=== PATIENT | male | born 1970 | race African-American/Black ===

== ENCOUNTER 2019-10-26 20:08 | Emergency (ER) | payer BC, OTHER ==
[~2019-10-26] VITALS: Ht 175.3 cm; Wt 88.5 kg
[2019-10-26] MEDS ORDERED: HYDRALAZINE 2525 MG PO (20:19)
[2019-10-26 21:46] LABS: ABSOLUTE NEUTROPHILS 3.4 thou/uL (1.4-8.2); BASOPHILS 0.7 % (0.0-2.0); EOSINOPHILS 1.6 % (0.0-3.0); HEMATOCRIT 47.6 % (42.0-52.0); HEMOGLOBIN 16.2 gm/dL (14.0-18.0); LYMPHOCYTES 34.1 % (24.0-44.0); MCH 30.6 pg (26.0-34.0); MCV 89.9 fL (80.0-100.0); MONOCYTES 8.1 % (1.0-8.0); PLATELET COUNT 205 thou/uL (150-400); POLYS 55.5 % (36.0-66.0); RDW 14.7 % (10.5-14.5); WBC 6.1 thou/uL (4.0-11.0)
[2019-10-26 21:50] LABS: CALCIUM 9.5 mg/dL (8.5-10.1); CREATININE 1.1 mg/dL (0.7-1.3); POTASSIUM 3.6 mmol/L (3.5-5.1)
[2019-10-26 21:56] LABS: ALBUMIN 3.9 g/dL (3.4-5.0); TOTAL BILIRUBIN 0.7 mg/dL (<0.1-1.0); TOTAL PROTEIN 7.4 g/dL (6.4-8.2)
[2019-10-26 22:37] VITALS: BP 189/123
== END 2019-10-26 23:01 | disposition home or self-care (01) ==
LOC: ER 20:08
PROVIDERS: Nurse Practitioner
DX: Z79.899 Other long term (current) drug therapy (principal); F17.210 Nicotine dependence, cigarettes, uncomplicated

== ENCOUNTER 2020-01-16 12:26 | Emergency (ER) | payer BC, OTHER ==
[~2020-01-16] VITALS: Ht 175.3 cm; Wt 90.7 kg
[~2020-01-16 12:26] MED LIST: HYDRALAZINE 2525 MG PO
[2020-01-16] MEDS ORDERED: HYDROCHLOROTHIA25 M2 PO (12:40)
[2020-01-16] MEDS ORDERED: SERTRALINE HCL25 MG PO (12:41)
[2020-01-16 13:24] LABS: ABSOLUTE NEUTROPHILS 4.9 thou/uL (1.4-8.2); BASOPHILS 0.8 % (0.0-2.0); EOSINOPHILS 0.1 % (0.0-3.0); HEMATOCRIT 43.3 % (42.0-52.0); HEMOGLOBIN 14.6 gm/dL (14.0-18.0); LYMPHOCYTES 22.8 % (24.0-44.0); MCH 30.4 pg (26.0-34.0); MCHC 33.7 g/dL (28.0-37.0); MCV 90.3 fL (80.0-100.0); MONOCYTES 4.4 % (1.0-8.0); PLATELET COUNT 195 thou/uL (150-400); POLYS 71.9 % (36.0-66.0); RBC 4.79 mil/uL (4.50-6.00); RDW 14.5 % (10.5-14.5); WBC 6.8 thou/uL (4.0-11.0)
[2020-01-16 13:27] LABS: ANION GAP 13 mmol/L (7-16); BUN 8 mg/dL (7-18); CALCIUM 9.1 mg/dL (8.5-10.1); CHLORIDE 91 mmol/L (98-107); CO2 24 mmol/L (21-32); CREATININE 1.1 mg/dL (0.7-1.3); GLUCOSE 84 mg/dL (74-106); POTASSIUM 3.7 mmol/L (3.5-5.1); SODIUM 128 mmol/L (136-145)
[2020-01-16 13:36] LABS: TROPONIN-I <0.06 ng/mL (<0.06)
[2020-01-16] MEDS ORDERED: ZOFRAN ODT4 MG PO (15:09)
[2020-01-16 15:20] VITALS: BP 156/82
--- NOTE | 2020-01-17 07:59 | EKG ---
[facility] [place] [address] ELECTROCARDIOGRAM REPORT Name: PATRICIA KO [id number] Admission: 01/16/20 Attend Phys: Discharge: 01/16/20 Date of : 70 Report #: [id number] THIS REPORT FOR: cc: JOSE - Jaclyn family physician/PCP JOSE - Jaclyn family physician/PCP Curtis Blanca MD [facility] THIS REPORT FOR: //name// [facility] ED Test Date: 2020-01-16 Test Time: 12:48:29 Pat Name: PATRICIA KO Department: Room: Gender: Diamond Polisher: LEANDRO JEFFREYJEROME : 1970 Requested By: Don Leo Order Number: [id number] MD: Curtis Blanca Measurements Intervals [place] Rate: 61 P: 54 WI: 188 QRS: 46 QRSD: 100 T: 26 QT: 440 QTc: 444 Interpretive Statements Sinus rhythm Probable left atrial enlargement RSR' in V1 or V2, right VCD Compared to ECG 07/11/2008 05:50:37 RSR' in V1 or V2 now present Electronically Signed On 01-17-2020 7:59:07 CDT by Curtis Blanca [email or web address] <ELECTRONICALLY SIGNED> By: Curtis Blanca MD, [facility] 01/17/20 [id number] Curtis Blanca MD, [facility] /EPI
== END 2020-01-16 15:21 | disposition home or self-care (01) ==
LOC: ER 12:26
PROVIDERS: Emergency Medicine
DX: R00.2 Palpitations (principal); R19.7 Diarrhea, unspecified; I10 Essential (primary) hypertension; F41.9 Anxiety disorder, unspecified; F17.210 Nicotine dependence, cigarettes, uncomplicated; Z79.899 Other long term (current) drug therapy; Z91.013 Allergy to seafood